=== PATIENT | female | born 1980 | race Caucasian/White ===

== ENCOUNTER 2018-07-16 02:31 | Emergency (ER) | payer OTHER ==
[2018-07-16 03:41] LABS: PLATELET COUNT 250 x10^3mcL (130-400)
[2018-07-16 03:44] LABS: CHLORIDE SERUM 108 mmol/L (98-107); POTASSIUM SERUM 3.7 mmol/L (3.5-5.1); SODIUM SERUM 142 mmol/L (136-145)
[2018-07-16 03:50] LABS: RED CELL DISTRIBUTION WIDTH 19.4 % (11.5-14.5)
[2018-07-16 04:21] LABS: ALBUMIN 3.8 g/dL (3.4-5.0); ALKALINE PHOSPHATASE 68 U/L (46-116); ALT/SGPT 70 U/L (14-59); AST/SGOT 97 U/L (15-37); BILIRUBIN TOTAL 0.25 mg/dL (0.20-1.00); CARBON DIOXIDE 27.8 mmol/L (21-32); CREATININE SERUM 0.6 mg/dL (0.6-1.0); GFR1 > 60 mL/min; GLUCOSE SERUM 96 mg/dL (74-106); TOTAL PROTEIN, SERUM 7.7 g/dL (6.4-8.2)
[2018-07-16 05:02] LABS: BAND NEUTROPHIL 1 % (0-10); METAMYELOCTE 1 % (0-2); MONOCYTE 8 % (0-7); SEGMENTED NEUTROPHILS 59 % (37-75)
[2018-07-16 05:03] LABS: PLATELET MORPHOLOGY PLATELETS NORMAL; ovalocyte/elliptocyte 1+; rbc morphology (normal/abnorm) ABNORMAL (NORMAL)
[2018-07-16 07:42] VITALS: BP 116/79
[2018-07-16 08:42] LABS: AMPHETAMINE QUAL UR NONE DETECTED (See below)
== END 2018-07-16 07:55 | disposition home or self-care (01) ==
LOC: ED 02:31
PROVIDERS: Emergency Medicine
DX: F10.129 Alcohol abuse with intoxication, unspecified (principal)
CPT/HCPCS: 36415; G0480